=== PATIENT | female | born 1980 | race Caucasian/White ===

== ENCOUNTER 2020-05-15 02:34 | Inpatient (IN) ==
[~2020-05-15 02:34] MED LIST: *HR* FentaNYL (PF) 100 MCG/2 ML VIAL IVP PRN; Azithromycin 500 MG in 0.9 % Sodium Chloride 250 ML IVPB ONE; Famotidine 20 MG/2 ML VIAL IVP PRN; Lidocaine 1% 20 ML MDV INFILT PRN; Metoclopramide 10 MG/2 ML VIAL IVP PRN; Naloxone 0.4 MG/ML INJ IVP PRN; Ondansetron 4 MG/2 ML VIAL IVP PRN
[2020-05-15 03:03] LABS: Basophils % 0.3 %; Eosinophils # 0.2 K/mcL (0.0-0.6); Eosinophils % 1.6 %; Hematocrit 38.5 % (35.3-44.9); Hemoglobin 12.5 g/dL (11.5-15.4); Immature Granulocytes % 0.8 % (0-4); Lymphocytes % 19.8 %; Mean Corpuscular HGB Conc 32.5 g/dL (31.6-35.5); Mean Corpuscular Hemoglobin 32.3 pg (28.0-33.3); Mean Corpuscular Volume 99.5 fL (83.0-100.0); Mean Platelet Volume 10.9 fL (9.4-12.4); Monocytes % 9.5 %; Platelet Count 232 K/mcL (140-400); Red Blood Count 3.87 M/mcL (3.82-4.97); Red Cell Distribution Width 14.1 % (11.5-14.5); White Blood Count 10.3 K/mcL (4.3-11.1)
[2020-05-15 03:09] LABS: Amphetamine Screen,Urine Negative ng/mL (Cutoff=1000); Barbiturate Screen,Urine Negative ng/mL (Cutoff=200); Benzodiazepines Screen,Urine Negative ng/mL (Cutoff=200); Cannabinoid Screen,Urine Negative ng/mL (Cutoff = 50); Cocaine Screen,Urine Negative ng/mL (Cutoff= 300); Opiate Screen,Urine Negative ng/mL (Cutoff=300); Phencyclidine Screen,Urine Negative ng/mL (Cutoff=25)
[2020-05-15] MEDS: Ringers Solution, Lactated 1,000 ML IVC SCH ×3 (05:50→10:57)
[2020-05-15] MEDS ORDERED: Epidural Premix (fent/bupiv) 110 ML EP ONE (06:06)
[2020-05-15] MEDS ORDERED: *HR* FentaNYL (PF) 100 MCG/2 ML VIAL ONE (06:06)
[2020-05-15] MEDS ORDERED: Ropivacaine/PF 0.2% 20 ML VIAL ONE (06:06)
[2020-05-15] MEDS ORDERED: EPHEDrine 50 MG/ML VIAL IVP PRN (06:38)
[2020-05-15] MEDS ORDERED: Epidural Premix (fent/bupiv) 110 ML EP SCH (06:45)
[2020-05-15] MEDS ORDERED: Terbutaline 1 MG/ML VIAL SQ ONE ×2 (14:03→14:10)
[2020-05-15] MEDS ORDERED: Famotidine 20 MG/2 ML VIAL IVP ONE (14:35)
[2020-05-15] MEDS ORDERED: CeFAZolin 2,000 MG/50 ML BAG IVPB ONE (14:35)
[2020-05-15] MEDS ORDERED: Metoclopramide 10 MG/2 ML VIAL IVP ONE (14:35)
[2020-05-15] MEDS ORDERED: 0.9 % Sodium Chloride 1,000 ML IVC SCH (14:45)
[2020-05-15] MEDS ORDERED: Ringers Solution, Lactated 1,000 ML ONE (14:51)
[2020-05-15] MEDS ORDERED: Chloroprocaine/PF 20 ML VIAL INFILT ONE (15:02)
[2020-05-15] MEDS ORDERED: *HR* Oxytocin 10 UNIT/ML VIAL IM ONE (15:18)
[2020-05-15] MEDS ORDERED: Ondansetron 4 MG/2 ML VIAL ONE (15:28)
[2020-05-15] MEDS ORDERED: Ketorolac 30 MG/ML VIAL ONE (15:52)
[2020-05-15] MEDS ORDERED: *HR* Morphine Sulfate/PF 10 MG/10 ML AMPUL ONE (15:57)
[2020-05-15] MEDS ORDERED: Azithromycin 500 MG in 0.9 % Sodium Chloride 250 ML IVPB ONE (16:00)
[2020-05-15] MEDS ORDERED: Oxytocin 20 units/ LR 1000 mL 20 UNIT/1,000 ML BAG IVC ONE (17:47)
[2020-05-15] MEDS ORDERED: Lanolin 7 G OINT...G. TP PRN (18:29)
[2020-05-15] MEDS ORDERED: Measles/Mumps/Rubella Vacc 0.5 ML VIAL SQ PRN (18:29)
[2020-05-15] MEDS ORDERED: Oxytocin 20 units/ LR 1000 mL 20 UNIT/1,000 ML BAG IVC SCH (18:29)
[2020-05-15] MEDS ORDERED: Rho Immune Globulin 1,500 UNIT SYRINGE IM PRN (18:29)
[2020-05-15] MEDS: Acetaminophen 325 MG TABLET PO PRN (20:52)
[2020-05-15] MEDS ORDERED: Ondansetron 4 MG/2 ML VIAL IVP PRN ×2 (23:20→23:23)
[2020-05-16] MEDS: Acetaminophen 325 MG TABLET PO PRN ×2 (03:43→09:29)
[2020-05-16 06:37] LABS: Basophils % 0.2 %; Eosinophils # 0.1 K/mcL (0.0-0.6); Eosinophils % 0.7 %; Hematocrit 30.8 % (35.3-44.9); Immature Granulocytes % 0.4 % (0-4); Lymphocytes # 1.6 K/mcL (0.6-4.6); Lymphocytes % 12.7 %; Mean Corpuscular HGB Conc 31.8 g/dL (31.6-35.5); Mean Corpuscular Volume 100.7 fL (83.0-100.0); Mean Platelet Volume 10.7 fL (9.4-12.4); Monocytes # 0.8 K/mcL (0.0-1.3); Monocytes % 6.4 %; Neutrophils # 9.8 K/mcL (1.6-8.9); Platelet Count 177 K/mcL (140-400); Red Blood Count 3.06 M/mcL (3.82-4.97); Red Cell Distribution Width 14.3 % (11.5-14.5); Segmented Neutrophils % 79.6 %; White Blood Count 12.3 K/mcL (4.3-11.1)
[2020-05-16 06:43] LABS: Hemoglobin 9.8 g/dL (11.5-15.4)
[2020-05-16] MEDS: Prenatal Vit/FA 1 EACH TABLET PO SCH (09:19)
[2020-05-16] MEDS ORDERED: *HR* OxyCODONE/APAP 5/325 TABLET PO PRN (15:02)
[2020-05-16] MEDS: Ibuprofen 600 MG TABLET PO PRN (15:47)
[2020-05-17] MEDS: Ibuprofen 600 MG TABLET PO PRN (02:57)
[2020-05-17 08:23] VITALS: BP 100/66
[2020-05-17] MEDS: Prenatal Vit/FA 1 EACH TABLET PO SCH (08:43)
[2020-05-17] MEDS: Acetaminophen 325 MG TABLET PO PRN (08:43)
== END 2020-05-17 14:30 | disposition home or self-care (01) | DRG 787 ==
LOC: 1NENULAB → 1NENUOBS 18:23
PROVIDERS: ADMIT Obstetrics & Gynecology; ATTEND Obstetrics & Gynecology